=== PATIENT | male | born 1960 | race Caucasian/White ===

== ENCOUNTER 2019-08-11 11:23 | Emergency (ER) | payer MEDICAID ==
[~2019-08-11] VITALS: Ht 182.9 cm; Wt 72.6 kg
[2019-08-11 11:32] VITALS: BP_SYST 144
--- NOTE | 2019-08-11 11:38 | NUR ---
Patient to ER bed 8 to gown for evaluation. Side rails up. Report given to DIANNE Hays.
--- NOTE | 2019-08-11 11:39 | NUR ---
Patient is awake, alert, and oriented x4. Patient states he had hip replacement surgery at [facility] on Sunday and left AMA yesterday. He is complaining of sharp right hip pain 10/10.
--- NOTE | 2019-08-11 11:42 | NUR ---
ER Dr. Brannon at bedside examining patient.
[2019-08-11] MEDS ORDERED: KETOROLAC TROMETHAMINE 30 MG VIAL IM ONE (12:00)
[2019-08-11] MEDS ORDERED: HYDROcodone/ACETAMIN 5-325 MG TAB (NORCO/ VICODIN) PO ONE (12:00)
--- NOTE | 2019-08-11 12:06 | NUR ---
Patternmaker Sample called at patient's request. Patient has been provided to go lunch, homeless packet. Patient refuses clothing at this time. Patient is requesting a ride to: [facility] [address] [place] [address]
[2019-08-11 12:23] VITALS: BP_SYST 138
--- NOTE | 2019-08-11 12:23 | NUR ---
Patient given written and verbal discharge instructions and verbalizes understanding. ER MD discussed with patient the results and treatment provided. Patient in stable condition. ID arm band removed. Rx of naprosmesfin norco given. Patient educated on pain management and to follow up with PMD. Pain Scale 0/10. Opportunity for questions provided and answered. Medication side effect fact sheet provided. Patient in waiting for cab ride in the waiting room.
--- NOTE | 2019-08-11 12:52 | NUR ---
Movie Operator: COMBINATION WELDER was called to ED for a homeless pt. , Greg Kumariguson COMBINATION WELDER met with Mr. Sanches who was being wheeled out to the waiting room. RnFausto Hays stated pt. left [facility] AMA and had just had surgery on this past Sunday. COMBINATION WELDER interview him and shared some homeless resources with him. Pt. stated his 1st hip surgery was 05/21/19 and this surgery from Sunday, he grew angry at [facility] because they were not going to send him to a SNF to heal. COMBINATION WELDER shared with pt. if he were to call Medical at [phone], ask for a replacement card and also ask to be assigned to a medical group , he may have a better chance of being eligible to go to a SNF. Pt. stated he has his medication prescription. He has his info at [facility] and can get his meds filled there even though he does not have a card. Pt. was left waiting for a taxi that ED had arranged. Pt. also had a meal.
== END 2019-08-11 12:23 | disposition home or self-care (01) ==
LOC: SED 11:23
DX: M25.551 Pain in right hip (principal)
CPT/HCPCS: 96372; 99283; J1885